=== PATIENT | female | born 1935 | race Caucasian/White ===

== ENCOUNTER 2017-02-14 08:35 | Day surgery (SDC) | payer OTHER ==
[~2017-02-14 08:35] MED LIST: ASPI81TA23 PO; CALCTAB94 PO; CENTCHW4 CHEW; GEMF600 PO; LISI-515 PO; METF500T4 PO; RALO60 PO; TOPR50TA PO; TRAM50TA PO
[2017-02-14 09:37] LABS: HEMATOCRIT 49.2 % (35.0-46.0); MEAN CELL VOLUME 81.3 FL (80.0-100.0); MEAN CORPUSCULAR HEMOGLOBIN 27.1 PG (27.0-34.0); MEAN CORPUSCULAR HGB CONC 33.4 % (32.0-36.0); PLATELET COUNT 350 TH/MM3 (150-450); RED BLOOD COUNT 6.05 MIL/MM3 (4.00-5.30); RED CELL DISTRIBUTION WIDTH 14.3 % (11.6-17.2); REVIEW FLAG FINAL; WHITE BLOOD COUNT 9.9 TH/MM3 (4.0-11.0)
[2017-02-14 09:47] LABS: APTT (PATIENT) 24.2 SEC (24.3-30.1); PROTHROMBIN TIME - PATIENT 10.6 SEC (9.8-11.6)
[2017-02-14 11:25] VITALS: BP 130/64; PULSE 62; RESP 20; TEMP 97.8; O2SAT 94
[2017-02-14 11:40] VITALS: BP 128/70; PULSE 90; RESP 20; TEMP 97.8; O2SAT 94
--- NOTE | 2017-02-14 11:44 | RADRPT ---
EXAM DATE/TIME: 02/14/2017 10:08 [facility] COMPARISON: No previous studies available for comparison. INDICATIONS : Ascites. MEDICAL HISTORY : Hypercholesterolemia. Hypertension. Diabetes. CAD. Ovarian cancer. SURGICAL HISTORY : Tonsillectomy. Cholecystectomy. Left breast lumpectomy. Hernia repair. Right total knee replacement. ENCOUNTER: Initial ACUITY: 1 day PAIN SCORE: 0/10 LOCATION: Left lower quadrant FLUID: Total volume of 5,200 cc of clear, yellow fluid was removed. Fluid was sent to lab for ordered studies. Post procedure scanning reveals no hematoma or other complication. TECHNIQUE: 1. Ultrasound guidance for abdominal paracentesis. 2. Paracentesis. The risks, benefits, and alternatives to ultrasound guided paracentesis were explained to the patient in detail including the risk of bleeding and infection. Written and verbal informed consent was obt ained. With the patient on the ultrasound table, ultrasound imaging was used to select the most appropriate approach for paracentesis. Overlying skin was prepped and draped in the usual sterile fashion and wi th a local anesthetic, a dermatotomy was made with an 11 blade scalpel. A 6 [place] Hvp-F-yobakore ca theter was introduced into the peritoneal cavity and fluid was collected. The patient tolerated the procedure well and left the ultrasound suite in stable condition. CONCLUSION: Uncomplicated ultrasound guided paracentesis. Evan Bonner Jr., MD on February 14, 2017 at 11:42 Board Certified Radiologist. This report was verified electronically.
== END 2017-02-14 11:50 | disposition home or self-care (01) ==
LOC: HRAD 08:35 → HRIP 11:32 → HRAD 11:50
PROVIDERS: ATTEND Family Medicine
DX: R18.8 Other ascites (principal); I10 Essential (primary) hypertension; I25.10 Atherosclerotic heart disease of native coronary artery without angina pectoris; E78.00 Pure hypercholesterolemia, unspecified; E11.9 Type 2 diabetes mellitus without complications; Z85.43 Personal history of malignant neoplasm of ovary; Z96.651 Presence of right artificial knee joint
CPT/HCPCS: 36415; 49083; 85027; 85610; 85730; C1729

== ENCOUNTER 2017-02-24 07:54 | Day surgery (SDC) | payer OTHER ==
[2017-02-24 08:13] LABS: HEMATOCRIT 51.9 % (35.0-46.0); MEAN CORPUSCULAR HEMOGLOBIN 26.9 PG (27.0-34.0); MEAN CORPUSCULAR HGB CONC 33.3 % (32.0-36.0); PLATELET COUNT 341 TH/MM3 (150-450); RED BLOOD COUNT 6.41 MIL/MM3 (4.00-5.30); RED CELL DISTRIBUTION WIDTH 14.6 % (11.6-17.2); REVIEW FLAG FINAL; WHITE BLOOD COUNT 11.3 TH/MM3 (4.0-11.0)
[2017-02-24 08:27] LABS: APTT (PATIENT) 23.3 SEC (24.3-30.1); INTERNATIONAL NORMALIZED RATIO 1.1 RATIO; PROTHROMBIN TIME - PATIENT 11.2 SEC (9.8-11.6)
[2017-02-24 08:51] VITALS: BP 121/87; PULSE 101; RESP 14; TEMP 98; O2SAT 96
[2017-02-24] MEDS ORDERED: LIDOCAINE HCL 1% 20 ML VIAL ONE (10:07)
[2017-02-24] MEDS ORDERED: ALBUMIN HUMAN 25% 12.5GM-W/25GM FOR 37.5GM IV ONE (10:15)
[2017-02-24] MEDS ORDERED: ALBUMIN HUMAN 25% 25GM-W/12.5GM FOR 37.5GM IV ONE (10:15)
[2017-02-24 10:20] VITALS: BP 139/76; PULSE 80; RESP 16; TEMP 97.8
[2017-02-24 10:50] VITALS: BP 134/72; PULSE 88; RESP 16
--- NOTE | 2017-02-24 16:05 | RADRPT ---
EXAM DATE/TIME: 02/24/2017 08:41 [facility] COMPARISON: No previous studies available for comparison. INDICATIONS : Ascites. MEDICAL HISTORY : Hypercholesterolemia. Hypertension. Ovarian cancer. Diabetes. Coronary artery disease. SURGICAL HISTORY : Tonsillectomy. Cholecystectomy. Total knee replacement, right. Left breast lumpectomy. Hernia repair. ENCOUNTER: Subsequent ACUITY: 2 weeks PAIN SCORE: 5/10 LOCATION: Left lower quadrant FLUID: Total volume of 5,600 cc of clear, yellow fluid was removed. Fluid was discarded. Paracentesis was therapeutic only. Post procedure scanning reveals no hematoma or other complication. TECHNIQUE: 1. Ultrasound guidance for abdominal paracentesis. 2. Paracentesis. The risks, benefits, and alternatives to ultrasound guided paracentesis were explained to the patient in detail including the risk of bleeding and infection. Written and verbal informed consent was obt ained. With the patient on the ultrasound table, ultrasound imaging was used to select the most appropriate approach for paracentesis. Overlying skin was prepped and draped in the usual sterile fashion and wi th a local anesthetic, a dermatotomy was made with an 11 blade scalpel. A 6 Occitan Ank-O-jftlsgjj ca theter was introduced into the peritoneal cavity and fluid was collected. The patient tolerated the procedure well and left the ultrasound suite in stable condition. CONCLUSION: Uncomplicated ultrasound guided paracentesis. Jed Keys MD on February 24, 2017 at 16:03 Board Certified Radiologist. This report was verified electronically.
== END 2017-02-24 10:45 | disposition home or self-care (01) ==
LOC: HRAD 07:54 → HRIP 08:13 → HRAD 10:45
PROVIDERS: ATTEND Family Medicine
DX: R18.8 Other ascites (principal); C56.9 Malignant neoplasm of unspecified ovary; I10 Essential (primary) hypertension; I25.10 Atherosclerotic heart disease of native coronary artery without angina pectoris; E11.9 Type 2 diabetes mellitus without complications; E78.00 Pure hypercholesterolemia, unspecified
CPT/HCPCS: 36415; 49083; 85027; 85610; 85730; 96365; C1729; P9047

== ENCOUNTER 2017-03-05 07:26 | Day surgery (SDC) | payer MEDICARE, OTHER ==
[~2017-03-05] VITALS: Ht 157.5 cm; Wt 59.1 kg
[2017-03-05 07:45] VITALS: BP 104/63; PULSE 88; RESP 20; TEMP 97.7; O2SAT 90
[2017-03-05] MEDS ORDERED: TRAM50TA PO (07:46)
[2017-03-05] MEDS ORDERED: ONDA8TAB7 PO (07:46)
[2017-03-05] MEDS ORDERED: HALO0.5T PO (07:46)
[2017-03-05] MEDS ORDERED: SENN1TAB PO (07:46)
[2017-03-05] MEDS ORDERED: ceFAZolin 2 GM PREMIX 50 ML - implanted port/tunneled catheter insertion IV SCH (08:45)
[2017-03-05] MEDS ORDERED: VANCOMYCIN 1000 MG/NS 250 ML - implanted port/tunneled catheter IV SCH ×2 (08:45)
[2017-03-05] MEDS ORDERED: SODIUM CHLORIDE 0.9% 1000 ML IV SCH (08:45)
[2017-03-05] MEDS ORDERED: MIDAZOLAM HCL 2 MG/2 ML VIAL ONE (08:49)
[2017-03-05] MEDS ORDERED: LIDOCAINE 1%/EPINEPHrine 1:100,000 SOLN 20 ML VIAL ONE (09:13)
--- NOTE | 2017-03-05 10:00 | PD.RAD ---
Post Procedure Progress Note Pre Procedure Diagnosis: (1) Ascites, malignant (2) Peritoneal carcinomatosis Post Procedure Diagnosis: (1) Ascites, malignant (2) Peritoneal carcinomatosis Procedure Date: Mar 05, 2017 Supervising Radiologist: Evan Bonner JR Proceduralist/Assist: Louisa Schreiber, RT(R)(), Vandana Rutledge RT(R) Anesthesia: Conscious Sedation Plan of Activity Patient to Unit: [facility] Patient Condition: Good See PACS Report for procedural detail/treatment Drainage Procedure Procedure 1 Imaging Guidance: Fluoroscopy, Ultrasound Procedure Type: Peritoneal Catheter Tunneled Procedure: Placement Ukrainian: 15 Fluid Description: Clear Findings: Carcinomatosis with fungating anterior abdominal wall mass. Placed tunneled Aspira drain. In good position and draining well. Plan Remove sutures in 2-3 weeks. Drain daily for 7 days. Then TON Bonner Jr.,Evan Pack MD Mar 05, 2017 10:00
[2017-03-05 10:10] VITALS: BP 94/52; PULSE 80; RESP 18; TEMP 98; O2SAT 99
[2017-03-05 10:25] VITALS: BP 96/55; PULSE 82; RESP 16; O2SAT 95
[2017-03-05 11:05] VITALS: BP 92/62; PULSE 93; RESP 18; O2SAT 93
--- NOTE | 2017-03-05 11:15 | RADRPT ---
EXAM DATE/TIME: 03/05/2017 10:21 [facility] COMPARISON: No previous studies available for comparison. INDICATIONS : Patient with history of peritoneal carcinomatosis and recurrent malignant ascites in need of peritone al drainage catheter placement. MEDICAL HISTORY : Left breast cancer, Ovarian cancer, Ascites, HTN, Diabetes, CAD, Osteopenia, Degenerative disc diseas e, HLD SURGICAL HISTORY : Bilateral knee replacement, Cholecystectomy, Multiple paracentesis, Hernia repair, Left breast lumpec yemii ENCOUNTER: Initial ACUITY: 4-6 months PAIN SCORE: 0/10 FLUORO TIME: 0.4 minutes IMAGE SERIES: 0 SEDATION TIME: 30minutes ACCESS: Right side abdomen MEDICATION(S): 1.) 1.5 mg midazolam (Versed) IV 2.) 75 mcg fentanyl (Sublimaze) IV DEVICE(S): 1.) 15 Romanian single lumen Aspira Pleural drainage catheter PROCEDURE : 1. ultrasound and fluoroscopic guided tunneled peritoneal drainage catheter placement 2. Conscious sedation with continuous EKG and Oximetry monitoring. The risks, benefits and alternatives to the procedure were explained and verbal and written consent w as obtained. The site was prepped in sterile fashion. Full sterile technique was used, including ca p, mask, sterile gloves and gown and a large sterile sheet. Hand hygiene and 2% chlorhexidine prep w as utilized per protocol for cutaneous antisepsis with appropriate dry time for site. The skin and s ubcutaneous tissues were infiltrated with local anesthetic solution. The patient has a large fungating mass arising from the anterior abdominal wall within the midline. T he right lower quadrant access was utilized. Under direct sonographic guidance a 21 gauge needle was passed into the ascitic fluid taking care to avoid the peritoneal implants. A 0.035 wire was coiled i n the abdominal cavity. The tract was dilated and a peel-away sheath placed. An Aspira catheter was t unneled for approximately 10 cm and then passed down the peel-away sheath. The peel-away sheath was r emoved. Aspiration yielded 4 L of straw-colored ascitic fluid. Sampling was not requested. Sutures we re used to close the dermatotomy site and to anchor the catheter in place. Conscious sedation was performed with the prescribed dosages and duration as above in the presence of an independent trained radiology nurse to assist in the monitoring of the patient. EKG and oximetry remained stable throughout the procedure. CONCLUSION: Uncomplicated tunneled peritoneal drain placement as detailed above. Evan Bonner Jr., MD on March 05, 2017 at 11:11 Board Certified Radiologist. This report was verified electronically.
[2017-03-05 11:35] VITALS: BP 110/60; PULSE 90; RESP 18; O2SAT 92
== END 2017-03-05 11:45 | disposition home or self-care (01) ==
LOC: HRIP 07:26 → HROP 07:26
PROVIDERS: ATTEND Family Medicine
DX: Z49.02 Encounter for fitting and adjustment of peritoneal dialysis catheter (principal); R18.0 Malignant ascites; C78.6 Secondary malignant neoplasm of retroperitoneum and peritoneum; Z85.43 Personal history of malignant neoplasm of ovary; Z85.3 Personal history of malignant neoplasm of breast; I25.10 Atherosclerotic heart disease of native coronary artery without angina pectoris; E78.5 Hyperlipidemia, unspecified; E11.9 Type 2 diabetes mellitus without complications; I10 Essential (primary) hypertension
CPT/HCPCS: 49418; 99152; 99153; C1729; C1769; J0690; J2250; J3010; J3370; J7030; J7050